=== PATIENT | female | born 1940 | race Caucasian/White ===

== ENCOUNTER 2017-11-04 14:15 | Emergency (ER) | payer MEDICARE, OTHER ==
[~2017-11-04] VITALS: Ht 167.6 cm; Wt 72.6 kg
[~2017-11-04 14:15] MED LIST: Flecainide Acet50 MG PO; METO50 PO; WARF5 PO
[2017-11-04 15:01] LABS: BASOPHILS ABSOLUTE AUTO 0.05 K/mm3 (0.00-0.23); BASOPHILS PERCENT AUTO 1 % (0-2); EOSINOPHILS ABSOLUTE AUTO 0.16 K/mm3 (0.00-0.68); EOSINOPHILS PERCENT AUTO 2 % (0-6); Hematocrit 41.3 % (33.0-51.0); Hemoglobin 13.7 g/dL (11.5-16.0); IMMATURE GRAN ABSOLUTE AUTO 0.03 K/mm3 (0.00-0.10); IMMATURE GRAN PERCENT AUTO 0 % (0-1); LYMPHOCYTES ABSOLUTE AUTO 1.34 K/mm3 (0.84-5.20); LYMPHOCYTES PERCENT AUTO 19 % (21-46); MONOCYTES ABSOLUTE AUTO 0.59 K/mm3 (0.16-1.47); MONOCYTES PERCENT AUTO 8 % (4-13); Mean Corpuscular HGB 33.1 pg (26.0-34.0); Mean Corpuscular HGB Conc 33.2 g/dL (31.5-36.5); Mean Corpuscular Volume 100 fL (80-100); Mean Platelet Volume 10.9 fL (9.1-12.4); NEUTROPHILS ABSOLUTE AUTO 5.03 K/mm3 (1.96-9.15); NEUTROPHILS PERCENT AUTO 70 % (41-73); Platelet Count 177 K/mm3 (150-400); RDW Standard Deviation 43.8 fL (35.1-46.3); Red Blood Cell Count 4.14 M/mm3 (3.80-5.20)
[2017-11-04 15:21] LABS: International Normalized Ratio 1.75; Prothrombin Time Results 18.5 Sec (9.7-11.5)
[2017-11-04 15:25] LABS: Alanine Aminotransfer (ALT/SGP 18 U/L (12-78); Albumin, Blood 3.6 g/dL (3.4-5.0); Albumin/Globulin Ratio 1.2 (0.8-1.8); Alk Phos 64 U/L (50-136); Anion Gap 7 mmol/L (6-16); Aspartate Aminotrans (AST/SGOT 19 U/L (12-37); Bilirubin, Total 0.4 mg/dL (0.1-1.0); Blood Urea Nitrogen 19 mg/dL (8-24); Bun/Creatinine Ratio 24.1 (12.0-20.0); CO2, Blood 25 mmol/L (21-32); Chloride, Blood 111 mmol/L (98-108); Creatinine, Blood 0.79 mg/dL (0.40-1.00); Globulin, Blood 3.1 g/dL (2.2-4.0); Glomerular Filtration Rate >60 (60-); Glucose, Blood 89 mg/dL (70-99); Potassium, Blood 3.7 mmol/L (3.5-5.5); Sodium, Blood 143 mmol/L (136-145); Total Protein, Blood 6.7 g/dL (6.4-8.2)
[2017-11-04] MEDS ORDERED: Percocet 10-321 EACH PO (16:38)
[2018-08-29] MEDS ORDERED: WARF5 PO (14:09)
[2018-08-29] MEDS ORDERED: BENZ100A PO (15:18)
[2018-08-29] MEDS ORDERED: ALBU90OI INH (15:18)
[2018-09-12] MEDS ORDERED: Omeprazole20 M1 (06:03)
[2018-09-12] MEDS ORDERED: Norco 5-325 Ta1 EACH PO (07:15)
[2018-09-12] MEDS ORDERED: Prednisone20 MG PO (07:15)
== END 2017-11-04 16:53 | disposition home or self-care (01) ==
LOC: ER 14:15
PROVIDERS: Emergency Medicine; Physician Assistant
DX: S20.219A Contusion of unspecified front wall of thorax, initial encounter (principal); I10 Essential (primary) hypertension; I48.91 Unspecified atrial fibrillation; C34.90 Malignant neoplasm of unspecified part of unspecified bronchus or lung; Z87.891 Personal history of nicotine dependence; Z79.899 Other long term (current) drug therapy; Z79.01 Long term (current) use of anticoagulants; W19.XXXA Unspecified fall, initial encounter
CPT/HCPCS: 36415; 36416; 71260; 80053; 85025; 85610; 85730; 93005; 93010; 96374; 96375; 99284; J2270; J2405; Q9967

== ENCOUNTER → 2018-07-29 | Outpatient (CLI) | payer MEDICARE, OTHER ==
[~2018-07-29] MED LIST changes: +Percocet 10-321 EACH PO
== END | disposition home or self-care (01) ==
LOC: LAB SHORT 15:00 → PLD 15:00
DX: D48.5 Neoplasm of uncertain behavior of skin (principal)
CPT/HCPCS: 88305

== ENCOUNTER → 2019-02-22 | Outpatient (CLI) | payer MEDICARE, OTHER ==
[~2019-02-22] MED LIST changes: +ALBU90OI INH; +BENZ100A PO; +Norco 5-325 Ta1 EACH PO; +Omeprazole20 M1; +Prednisone20 MG PO
== END | disposition home or self-care (01) ==
LOC: LAB SHORT 14:06 → PLD 14:06
DX: D48.5 Neoplasm of uncertain behavior of skin (principal)
CPT/HCPCS: 88305

== ENCOUNTER 2019-03-15 13:47 | Emergency (ER) | payer MEDICARE, OTHER ==
[~2019-03-15] VITALS: Ht 170.2 cm; Wt 70.3 kg
[~2019-03-15 13:47] MED LIST changes: -METO50 PO; +METO50ER PO
[2019-03-15] MEDS ORDERED: PREPARATION H1 EAC2 TOP (17:52)
[2019-03-15] MEDS ORDERED: Percocet 5-3251 EACH PO (17:52)
[2019-03-15] MEDS ORDERED: DOCU100 PO (17:52)
[2019-07-27] MEDS ORDERED: Ultram50 MG PO (00:54)
[2019-07-27] MEDS ORDERED: ONDA4ODT MM (00:54)
== END 2019-03-15 18:14 | disposition home or self-care (01) ==
LOC: ER 13:47
DX: K64.5 Perianal venous thrombosis (principal); Z79.899 Other long term (current) drug therapy; Z79.01 Long term (current) use of anticoagulants; Z79.52 Long term (current) use of systemic steroids; I48.91 Unspecified atrial fibrillation; Z87.891 Personal history of nicotine dependence
CPT/HCPCS: 99282

== ENCOUNTER 2019-06-24 12:13 | Inpatient (IN) | payer MEDICARE, OTHER ==
[~2019-06-24] VITALS: Ht 167.6 cm; Wt 73.3 kg
[~2019-06-24 12:13] MED LIST changes: +DOCU100 PO; +PREPARATION H1 EAC2 TOP; +Percocet 5-3251 EACH PO
[2019-06-24 14:32] LABS: BASOPHILS ABSOLUTE AUTO 0.05 K/mm3 (0.00-0.23); BASOPHILS PERCENT AUTO 1 % (0-2); EOSINOPHILS ABSOLUTE AUTO 0.28 K/mm3 (0.00-0.68); EOSINOPHILS PERCENT AUTO 3 % (0-6); Hematocrit 36.3 % (33.0-51.0); Hemoglobin 11.6 g/dL (11.5-16.0); IMMATURE GRAN ABSOLUTE AUTO 0.04 K/mm3 (0.00-0.10); IMMATURE GRAN PERCENT AUTO 1 % (0-1); LYMPHOCYTES ABSOLUTE AUTO 1.25 K/mm3 (0.84-5.20); LYMPHOCYTES PERCENT AUTO 15 % (21-46); MONOCYTES ABSOLUTE AUTO 0.61 K/mm3 (0.16-1.47); MONOCYTES PERCENT AUTO 8 % (4-13); Mean Corpuscular Volume 103 fL (80-100); Mean Platelet Volume 12.4 fL (9.1-12.4); NEUTROPHILS ABSOLUTE AUTO 5.94 K/mm3 (1.96-9.15); NEUTROPHILS PERCENT AUTO 73 % (41-73); Platelet Count 209 K/mm3 (150-400); RDW Coefficient Variation 13.3 % (11.7-14.2); RDW Standard Deviation 50.7 fL (35.1-46.3); Red Blood Cell Count 3.52 M/mm3 (3.80-5.20); White Blood Cell Count 8.17 K/mm3 (4.00-11.30)
[2019-06-24 14:46] LABS: Alanine Aminotransfer (ALT/SGP 101 U/L (12-78); Albumin, Blood 3.1 g/dL (3.4-5.0); Alk Phos 341 U/L (50-136); Anion Gap 8 mmol/L (6-16); Aspartate Aminotrans (AST/SGOT 149 U/L (12-37); Bilirubin, Total 0.6 mg/dL (0.1-1.0); Blood Urea Nitrogen 12 mg/dL (8-24); Bun/Creatinine Ratio 16.2 (12.0-20.0); CO2, Blood 24 mmol/L (21-32); Calcium, Blood 8.5 mg/dL (8.5-10.1); Chloride, Blood 110 mmol/L (98-108); Creatinine, Blood 0.74 mg/dL (0.40-1.00); Globulin, Blood 3.1 g/dL (2.2-4.0); Glomerular Filtration Rate >60 (60-); Glucose, Blood 105 mg/dL (70-99); Potassium, Blood 3.7 mmol/L (3.5-5.5); Sodium, Blood 142 mmol/L (136-145); Total Protein, Blood 6.2 g/dL (6.4-8.2)
[2019-06-24 14:51] LABS: International Normalized Ratio 3.97; Prothrombin Time Results 37.1 Sec (9.7-11.5)
[2019-06-24] MEDS ORDERED: WARF5 PO (15:18)
[2019-06-24] MEDS ORDERED: ESOMEPRAZOLE MA40 MG PO (15:19)
--- NOTE | 2019-06-24 16:24 | NUR ---
Telephone report received from PATRIZIA Mason. Anticipate arrival of pt to PCU 4 shortly.
--- NOTE | 2019-06-24 16:58 | NUR ---
Pt arrived to PCU, and the pt is alert, oriented, and cheerful. Denies any pain or any discomfort at this time. States that the bump on her head is much less swollen than it was. Noted goose egg on the occipital area of her head, with eccymotic area covering it, and yellowish bruising surrounding. Eccymotic area also noted at the nape of her neck and extending into an area of about 10x 15 cm, ecchymotic. NO swelling noted on the neck area. Pt states that she is feeling fine and that she fell after loosing her balance 8 days ago in a motor home, hitting the back of her head on the tile floor. Sinus rhythm per telemetry monitoring at this time. Vital signs taken, and blood pressure noted elevated. Initial intake and history/physical being done in nursing interventions at this time by Issac Fisher RN.
[2019-06-25 04:05] LABS: BASOPHILS ABSOLUTE AUTO 0.06 K/mm3 (0.00-0.23); BASOPHILS PERCENT AUTO 1 % (0-2); EOSINOPHILS PERCENT AUTO 3 % (0-6); Hematocrit 35.3 % (33.0-51.0); Hemoglobin 11.6 g/dL (11.5-16.0); IMMATURE GRAN ABSOLUTE AUTO 0.02 K/mm3 (0.00-0.10); IMMATURE GRAN PERCENT AUTO 0 % (0-1); LYMPHOCYTES ABSOLUTE AUTO 1.02 K/mm3 (0.84-5.20); LYMPHOCYTES PERCENT AUTO 15 % (21-46); MONOCYTES ABSOLUTE AUTO 0.59 K/mm3 (0.16-1.47); MONOCYTES PERCENT AUTO 9 % (4-13); Mean Corpuscular HGB Conc 32.9 g/dL (31.5-36.5); Mean Corpuscular Volume 101 fL (80-100); Mean Platelet Volume 11.6 fL (9.1-12.4); NEUTROPHILS PERCENT AUTO 72 % (41-73); Platelet Count 227 K/mm3 (150-400); RDW Coefficient Variation 13.2 % (11.7-14.2); RDW Standard Deviation 49.1 fL (35.1-46.3); Red Blood Cell Count 3.51 M/mm3 (3.80-5.20); White Blood Cell Count 6.79 K/mm3 (4.00-11.30)
[2019-06-25 04:19] LABS: International Normalized Ratio 1.14; Prothrombin Time Results 11.9 Sec (9.7-11.5)
[2019-06-25 04:22] LABS: Alanine Aminotransfer (ALT/SGP 188 U/L (12-78); Albumin, Blood 2.9 g/dL (3.4-5.0); Alk Phos 380 U/L (50-136); Anion Gap 5 mmol/L (6-16); Aspartate Aminotrans (AST/SGOT 383 U/L (12-37); Bilirubin, Total 1.5 mg/dL (0.1-1.0); Blood Urea Nitrogen 11 mg/dL (8-24); Bun/Creatinine Ratio 16.6 (12.0-20.0); CO2, Blood 25 mmol/L (21-32); Calcium, Blood 8.5 mg/dL (8.5-10.1); Chloride, Blood 111 mmol/L (98-108); Creatinine, Blood 0.66 mg/dL (0.40-1.00); Glomerular Filtration Rate >60 (60-); Glucose, Blood 104 mg/dL (70-99); Potassium, Blood 3.9 mmol/L (3.5-5.5); Sodium, Blood 141 mmol/L (136-145); Total Protein, Blood 5.9 g/dL (6.4-8.2)
--- NOTE | 2019-06-25 06:07 | NUR ---
SHIFT SUMMARY ASSUMED CARE OF PT AT 1900, PT AWAKE AND ALERT IN BED WITH NO SIGNS OF DISTRESS. MEDICATED PER MD ORDER AND UNIT PROTOCOL, PT WAS PLEASANT AND COOPERATIVE AT EVERY INTERVENTION AND ROUNDING. PT INDEPENDENT OF ADL'S, TRANSFERS SELF AND AMBULATES MILDLY UNSTEADILY YET INEVITABLY SAFELY TO BATHROOM. PT IS CONTINENT. ALL VSS T/O SHIFT, NO NEEDS OUTSIDE OF ROUTINE CARE. SCD'S REMOVED AROUND MIDNIGHT DUE TO SUPERTHERAPEUTIC ANTICOAGULATION LEVELS AND NURSING JUDGEMENT THAT SCD'S INCREASE THIS PT'S RISK OF FALLING. WILL CONTINUE TO MONITOR AND WILL PASS CARE AND REPORT TO ONCOMING SHIFT. BED LOCKED & LOW, CALL LIGHT WITHIN REACH. PT AWAKE IN BED WATCHING TV.
--- NOTE | 2019-06-25 09:27 | NUR ---
a+o, talking to family at bedside, no changes noted in neuros, will continue to monitor and treat as appropriate
--- NOTE | 2019-06-25 18:42 | NUR ---
a+o, pleasent to work with, call light in reach, awaiting results of renal pannel prior to release, situation explained to pt, saline locked, rm air, call light in reach, will provide SBAR report to day shift
--- NOTE | 2019-06-26 04:19 | NUR ---
ASSUMED CARE APPROXIMATELY 1900; PT IS ALERT AND ORIENTED; UPON ASSESSMENT LARGE BUMP NOTED ON OCCIPITAL AREA OF HER HEAD AND BRUISING NOTED EXTENDED IN HER HAIRLINE AT NAPE OF NECK WHICH WAS PREVIOUSLY DOCUMENTED; PT IS INDEPENDENT IN ROOM, AMBULATING TO BATHROOM INDEPENDENTLY; PT STATED SHE IS BORED AND IS ANXIOUS FOR DISCHARGE; NO CHANGES NOTED TO NEURO STATUS; PT DENIES PAIN; ORDER FOR MRI TO BE PREFORMED THIS AM; PT IS TO BE NPO AFTER 0600 FOR EGD, PO MEDS OKAY PER ORDERS; PT SLEPT A FEW HOURS IN BETWEEN INTERVENTIONS; CALL LIGHT W/IN REACH; BED IN LOWEST POSITION; WILL CONTINUE TO MONITOR AND ASSESS UNTIL HAND OFF TO DAY SHIFT RN.
[2019-06-26 04:49] LABS: Alanine Aminotransfer (ALT/SGP 261 U/L (12-78); Albumin, Blood 2.9 g/dL (3.4-5.0); Alk Phos 354 U/L (50-136); Anion Gap 6 mmol/L (6-16); Aspartate Aminotrans (AST/SGOT 400 U/L (12-37); Bilirubin, Total 1.8 mg/dL (0.1-1.0); Blood Urea Nitrogen 10 mg/dL (8-24); Bun/Creatinine Ratio 16.1 (12.0-20.0); CO2, Blood 27 mmol/L (21-32); Calcium, Blood 8.5 mg/dL (8.5-10.1); Chloride, Blood 108 mmol/L (98-108); Creatinine, Blood 0.62 mg/dL (0.40-1.00); Globulin, Blood 2.9 g/dL (2.2-4.0); Glomerular Filtration Rate >60 (60-); Glucose, Blood 94 mg/dL (70-99); Potassium, Blood 3.8 mmol/L (3.5-5.5); Sodium, Blood 141 mmol/L (136-145); Total Protein, Blood 5.8 g/dL (6.4-8.2)
[2019-06-26 08:07] LABS: HBSAG SCREEN Negative (Negative); HEP A AB, IGM Negative (Negative); HEP B CORE AB, IGM Negative (Negative); HEP C VIRUS AB <0.1 (0.0-0.9)
--- NOTE | 2019-06-26 10:01 | NUR ---
Dr. Vilchis here to see the pt following her MRI study this morning. Plan for EGD before noon, pt states she was told by Dr. Drew.
--- NOTE | 2019-06-26 11:25 | NUR ---
06/26/19 1125 Adán Oconnor History, Chart, Medications and Allergies reviewed before start of procedure.MONITOR INTACT WITH CONTINUOUS PULSE OXIMETRY AND INTERMITTENT BP.3-LEAD EKG REVIEWED WITH PHYSICIAN PRIOR TO START OF PROCEDURE.O2 VIA N/C INTACT THROUGHOUT SEDATION/PROCEDURE. Patient confirms NPO status and agrees with scheduled surgery.PATIENT DETERMINED TO BE ASA APPROPRIATE FOR PROPOFOL SEDATION PRIOR TO START OF PROCEDURE BY DR. PARSON.
--- NOTE | 2019-06-26 18:51 | NUR ---
TRANSFER SUMMARY PATIENT WAS SENT TO [facility]. REPORT WAS GIVEN TO PEG RN. IV WAS LEFT IN PLACE. PATIENT WAS P.EASANT AND CONSENTED TO THE TRANFER AND FAMILY HAS BEEN NOTIFIED. TRANSPORT PICKED THE PATIENT UP AND SHE HAS LEFT THE FACILITY. RECEIVING FACILITY REPORT WAS CALLED TO PEG RN.
[2019-07-27] MEDS ORDERED: Ultram50 MG PO (00:54)
[2019-07-27] MEDS ORDERED: ONDA4ODT MM (00:54)
== END 2019-06-26 18:37 | disposition short-term general hospital (02) | DRG 444 ==
LOC: ER 12:13 → PCU 15:04 → MEDS 06-26 12:02
PROVIDERS: Emergency Medicine; Internal Medicine Gastroenterology; ADMIT Internal Medicine
PROC: 0DJ08ZZ Inspection of Upper Intestinal Tract, Via Natural or Artificial Opening Endoscopic (ICD-10-PCS; principal; 2019-06-26 11:30)
DX: K83.1 Obstruction of bile duct (principal); S06.5X0A Traumatic subdural hemorrhage without loss of consciousness, initial encounter; B17.9 Acute viral hepatitis, unspecified; D68.32 Hemorrhagic disorder due to extrinsic circulating anticoagulants; I10 Essential (primary) hypertension; I48.0 Paroxysmal atrial fibrillation; T45.515A Adverse effect of anticoagulants, initial encounter; K21.9 Gastro-esophageal reflux disease without esophagitis; R74.0 Nonspecific elevation of levels of transaminase and lactic acid dehydrogenase [LDH]; K22.2 Esophageal obstruction; S00.03XA Contusion of scalp, initial encounter; K63.5 Polyp of colon
CPT/HCPCS: 36415; 70450; 74181; 76705; 80053; 80074; 83690; 85025; 85610; 93005; 93010; 96365; 97161; 97165; 97530; 99284-25; J0360; J2704; J3430; J7120

== ENCOUNTER 2020-08-09 22:45 | Emergency (ER) | payer MEDICARE, OTHER ==
[~2020-08-09] VITALS: Ht 172.7 cm; Wt 59.0 kg
[~2020-08-09 22:45] MED LIST changes: +ESOMEPRAZOLE MA40 MG PO; +ONDA4ODT MM; +Ultram50 MG PO
== END 2020-08-09 23:44 | disposition home or self-care (01) ==
LOC: ER 22:45
DX: S51.811A Laceration without foreign body of right forearm, initial encounter (principal); S51.812A Laceration without foreign body of left forearm, initial encounter; S41.111A Laceration without foreign body of right upper arm, initial encounter; S81.811A Laceration without foreign body, right lower leg, initial encounter; I48.91 Unspecified atrial fibrillation; I10 Essential (primary) hypertension; K21.9 Gastro-esophageal reflux disease without esophagitis; Z87.891 Personal history of nicotine dependence; Z79.01 Long term (current) use of anticoagulants; Z79.899 Other long term (current) drug therapy; W06.XXXA Fall from bed, initial encounter
CPT/HCPCS: 93005; 93010; 99284-25